=== PATIENT | male | born 1975 | race Caucasian/White ===

== ENCOUNTER → 2020-10-30 14:26 | Outpatient (CLI) | payer OTHER, SELFPAY ==
[2020-10-30 17:02] LABS: COVID19 -Nasal RAPID Negative (Negative)
== END ==
PROVIDERS: PCP Physician Assistant Medical; Visit Provider Physician Assistant
DX: Z11.59 Encounter for screening for other viral diseases (principal)
CPT/HCPCS: 87635

== ENCOUNTER 2020-11-02 06:15 | Day surgery (SDC) | payer OTHER, SELFPAY ==
[2020-10-26 08:35] VITALS: BMI 41.8
[2020-11-02] VITALS (14 sets, daily range): BP systolic 117–155; BP diastolic 63–101; PULSE 81–94; RESP 12–18; TEMP 36.1–37.3; O2SAT 94–99; BMI 41.8
--- NOTE | 2020-11-02 | DI.RAD.S_ITS ---
PROCEDURE: XR PELVIS 1-2V INDICATIONS: INNER OP TECHNIQUE: Intra-operative view of the pelvis and hip acquired. COMPARISON: [facility], CR, XR PELVIS WITH LATERAL HIP LEFT, 10/09/2020, 15:34. FINDINGS: Bones: Intraoperative devices prior to placement of arthroplasty prostheses are in expected positions. No fractures or suspicious bony lesions. Soft tissues: Overlying surgical retractors are present, along with other intraoperative changes. IMPRESSION: Intraoperative device in expected position. Dictated by: Sindy Bai M.D. on 11/02/2020 at 10:55 Approved by: Sindy Bai M.D. on 11/02/2020 at 10:56
--- NOTE | 2020-11-02 | DI.RAD.S_ITS ---
PROCEDURE: XR HIP W PEL IF DONE LT 2V INDICATIONS: TOTAL LEFT HIP TECHNIQUE: AP pelvis and lateral view of the left hip acquired. COMPARISON: [facility], CR, XR PELVIS WITH LATERAL HIP LEFT, 10/09/2020, 15:34. [facility], CR, XR PELVIS 1-2V, 11/02/2020, 9:29. FINDINGS: Bones: Patient is status post left hip arthroplasty, with hardware components in expected positions. The hip joint appears congruent. The visualized bony structures appear intact. Soft tissues: Overlying postoperative changes are noted. No suspicious soft tissue densities. IMPRESSION: Left hip arthroplasty with expected postsurgical appearance. Dictated by: Sindy Bai M.D. on 11/02/2020 at 19:23 Approved by: Sindy Bai M.D. on 11/02/2020 at 19:23
[2020-11-02] MEDS: CELECOXIB 200 MG CAPSULE PO (06:50)
[2020-11-02] MEDS: PREGABALIN 75 MG CAPSULE PO (06:50)
[2020-11-02] MEDS: ACETAMINOPHEN 325 MG TABLET 975 MG PO (06:50)
[2020-11-02] MEDS: VANCOMYCIN 1,000 MG/200 ML PIGGYBACK 200 MG IV (07:11)
[2020-11-02] MEDS: LACTATED RINGERS 1,000 ML 42 ML IV ×2 (07:11→08:45)
--- NOTE | 2020-11-02 07:30 | SUR.OPER ---
Lateral on padded OR bed. Gel axillary roll. Arms secured on padded armboard with pillow supporting top arm. Padded hip positioner braces x4 - anterior and posterior chest and pelvis. Additional gel pad used anterior pelvis. Gel pad under bottom leg from knee to foot and secured with tape over sheet.
--- NOTE | 2020-11-02 07:46 | PM.PREOP ---
Pre-operative Note COVID-19 COVID-19 status: Negative Interval Note History & Physical reviewed/Exam performed by Physician: Yes Changes to H&P: No
--- NOTE | 2020-11-02 07:47 | PM.OP.1 ---
Operative Date/Time/Diagnoses Date of procedure: 11/02/20 Time of procedure: 07:59 Pre-op diagnosis: left hip OA Post-op diagnosis: same Procedure & Clinicians Procedure: left hip OA Same procedure as scheduled: Yes Indications: The patient has had progressively worsening left hip pain with radiographic changes consistent with arthritis. Non-operative management has failed and the patient has requested total hip replacement. The risks, benefits and alternatives to surgery were discussed with the patient prior to proceeding. Risks discussed included, but were not limited to, failure to relieve pain, leg length discrepancy, dislocation, stiffness, infection, nerve damage, deep venous thrombosis, pulmonary embolism, stroke, coma, heart attack, permanent paralysis and , as well as the potential need for eventual revision of the prosthetic. Surgeon: Tonja Slade Family Practitioner: Reji Singh Anesthesia Type: General and Spinal Operative Notes Findings: Severe left hip osteoarthritis, adequate stability Closure Type: primary Specimen(s): none sent Prosthetic devices, grafts, tissues, transplants, or devices: Slade and nephew 52 mm R3 cup, size 6 anthology high offset, 36+ 4 Oxinium, one 15 mm screw Applied: drain(s) Estimated Blood Loss (mL): 250 Blood products transfused: none Procedure in detail: The patient was seen in the pre-operative area, where the patient identified the left hip as the operative site and this was marked with my initials. The patient received pre-operative antibiotics and was taken to the operating room and placed on the operative table in the right lateral decubitus position after satisfactory anesthesia. A assistant media planner out was performed. The left leg was prepared from the ankle to the iliac crest with ChloroPrep in the usual fashion and draped through sterile drapes. The hip was approached through an approximately 20 cm incision centered over the greater trochanter and curving gently posteriorly as it went proximally. This was carried sharply to the fascia sasha, which was divided and retracted with a self retaining retractor. The trochanteric bursa was excised with care being taken to avoid the sciatic nerve, which was identified and protected throughout the case. The short external rotators were incised and the capsulomuscular flap was raised and tagged for later repair. The hip was dislocated, and a femoral neck osteotomy performed approximately 15 mm above the lesser trochanter. Retractors were placed around the femur. The canal was opened with a box cutting osteotome, followed by a T handled reamer and a lateralizing reamer. The chili pepper broach was then used, followed by sequential broaching until there was good stability of the broach in the femur. Retractors were placed to expose the acetabulum. The labrum and central soft tissues were removed. Reaming was performed initially going up in 2 mm increments, then 1 mm increments until good bite was obtained with an odd sized reamer. The cup 1 mm larger than the last reamer was then inserted using the appropriate anteversion guides. It was further stabilized with a single screw. A trial neutral liner was placed. The broach was placed in the canal. A trial head and neck were then placed and the hip relocated and checked for leg length and stability. An intraoperative film confirmed the component position and no evidence of fracture. The patient was stable in the position of sleep, of squatting, and could be put through a range of motion with 45 degrees internal rotation without dislocation. At 90 degrees flexion, internal rotation to 70 was possible before dislocation. This was felt to be satisfactory and the appropriate components were opened, and the trials were removed. The acetabular liner was impacted into position. The final stem was then impacted into the prepared femoral canal. A brief Betadine soak was performed while trialing with head options. The hip was meticulously irrigated with normal saline. Finally the femoral head was impacted onto the stem. The acetabulum was cleared of all material and the hip relocated one final time. The capsulomuscular flap was then repaired to the greater trochanter though an awl hole using the tag sutures. The short external rotators were repaired with a nonabsorbable suture. A deep drain was placed and brought out anteriorly. The fascia sasha was closed with Vicryl. The subcutaneous layer was closed with barbed sutures and SteriStrips. An Aquacel Ag dressing was applied and the patient was taken to recovery having tolerated the procedure well. Complications: none Post-operative Condition: stable Disposition: Acute Care Plan for aftercare: The patient will be maintained on a standard total hip replacement protocol with weight bearing as tolerated and posterior hip precautions. The patient will receive Aspirin and sequential compression devices for DVT prophylaxis. The patient will be discharged home when safe for the home environment.
[2020-11-02] MEDS: CEFAZOLIN 2 GM/100 ML FROZ.PIGGY IV (08:01)
[2020-11-02] MEDS: BUPIVACAINE 0.25% (PF) VIAL 30 ML INJ (08:43)
[2020-11-02] MEDS: BUPIVACAINE LIPOSOME 266 MG/20 ML VIAL INJ (08:44)
[2020-11-02] MEDS: EPINEPHrine 1 MG/ML IRR (08:44)
[2020-11-02] MEDS: TRANEXAMIC ACID 1,000 MG VIAL 2000 MG INJ ×2 (08:46→10:29)
[2020-11-02] MEDS: IBUPROFEN 400 MG TABLET PO ×4 (12:31→23:54)
[2020-11-02] MEDS: OXYCODONE IR 5 MG TABLET PO (12:31)
[2020-11-02] MEDS: LACTATED RINGERS 1,000 ML 125 ML IV ×2 (12:34→18:52)
--- NOTE | 2020-11-02 13:30 | PC.ADMIT ---
1110 [facility] Admission Note: Pt arrived from PACU drowsy, but wakes to voice. On 2L via NC, home CPAP at bedside, set up for use. Oriented to call light and room. Pt reports pain 5/10, to L hip, but falling asleep during conversation. Will monitor for safety prior to administration. PO Oxycodone given per Emar. IVF running to PIV, SO at bedside, Scds in place and BA active. Alexander dressing is functioning properly and ice packs are in place. The patient,Cliff Goyal,45 y/o, was given written information regarding hospital policies, unit procedures and contact persons. Patient's smoking status: Former smoker. Vital Signs - 8 hr 11/02/20 06:51 11/02/20 10:51 11/02/20 10:55 Temperature 99.1 F 97.4 F L Pulse Rate 83 94 H 87 Respiratory Rate 17 12 15 Blood Pressure 146/101 H 155/87 H Pulse Oximetry 95 97 94 11/02/20 11:00 11/02/20 11:05 11/02/20 11:11 Temperature 97.7 F Pulse Rate 90 85 86 Respiratory Rate 12 15 14 Blood Pressure 142/91 H 147/92 H 133/88 Pulse Oximetry 94 96 99 11/02/20 11:15 11/02/20 11:21 11/02/20 11:35 Temperature 97.1 F L 97.0 F L Pulse Rate 83 84 81 Respiratory Rate 14 18 18 Blood Pressure 130/82 129/87 131/83 Pulse Oximetry 98 97 97 11/02/20 12:00 11/02/20 12:30 Temperature 97.3 F L 97.0 F L Pulse Rate 83 86 Respiratory Rate 18 18 Blood Pressure 135/78 128/75 Pulse Oximetry 95 97
[2020-11-02] MEDS: ACETAMINOPHEN 325 MG TABLET 650 MG PO ×2 (15:38→21:02)
--- NOTE | 2020-11-02 16:41 | PT.IIE ---
Current Diagnoses Unilateral primary osteoarthritis, left hip (11/02/20) Surgery Performed Operation Date: 11/02/20 07:45 Actual Procedures p Total Hip Arthroplasty(Left) - Tonja Slade MD Surgical History (Last Updated 10/26/20 @ 09:08 by Lurdes Reyes RN) History of surgery (~2001) Hx of lumbosacral spine surgery (01/31/17) Hx of splenectomy (~2014) Hx of tonsillectomy Medical History (Last Updated 10/26/20 @ 09:11 by Lurdes Reyes RN) Osteoarthritis RLS (restless legs syndrome) Seasonal allergies Sleep apnea Physical Therapy Inpatient Evaluation/Re-Eval M1 PT/OT-IP Prior Functional Status Start: 11/02/20 12:49 Freq: NEEDED Status: Active Protocol: Document 11/02/20 15:42 DE (Rec: 11/02/20 16:10 DE [id number]) Medical Review Prior Functional Status Medical History Reviewed Yes Communication WNL. No deficits noted. Able to make needs known. Mobility and Gait IND for all mobility and amb without AD at baseline. No limitations to amb distance. Pt has difficulty performing stairs and needs to lean on the wall at home. Activities of Daily Living and IADL's IND for all ADLs and IADLs at baseline. Pt has difficulty donning/doffing L sock but is able to do it. Prior Functional Level (Other details) Hx of back surgery 3 years ago . Social History Household Members significant other,children Living Arrangements House Number of Floors (Floors) One Floor Number of Stairs To Enter/Railing? 3 [place] with no railing but there is a wall on the R side he can lean on. There is a corner he can grab onto on the R side that he can reach after the first step. Home Environment High Toilet,Walk in Shower, Built-In Shower Seat Home Equipment Front Wheel Walker,Straight Cane,Hand Held Shower,Long Handled Shoe Horn,Bed Rails, Grab Bars Near Toilet Employment Status Self-Employed Additional Social History Comment Pt lives with significant other, Magda, and a son. Magda will be available full-time to assist if needed. Son can help too. 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 M2 PT-IP Current Condition Start: 11/02/20 12:49 Freq: NEEDED Status: Active Protocol: Document 11/02/20 15:42 DE (Rec: 11/02/20 16:10 DE [id number]) Physical Therapy Current Condition Current Condition Evaluation Date 11/02/20 Treatment Diagnosis L JOHN; Difficulty in walking Onset Date 11/02/20 Precautions Posterior Hip Precautions No Hip Flexion > 90 degrees,No Hip Internal Rotation,No Hip Adduction Weight Bearing Status Weight Bearing Status Weight Bear as Tolerated M3 PT-IP Subjective Start: 11/02/20 12:49 Freq: NEEDED Status: Active Protocol: Document 11/02/20 15:42 DE (Rec: 11/02/20 16:10 DE [id number]) Subjective Physical Therapy Visit Type Type Initial Evaluation Visit Start Time 14:20 Visit Stop Time 15:02 Total Visit Minutes 42 Notes SPT Hipolito led session under direct supervision of PT Carmen. 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 Therapy Pain Assessment Pain When Pain Assessed At Rest Pain Present Pain Present Pain Reported Location right knee Intensity 4 Scale Used Numeric (0 - 10) Description Aching Pain Behaviors Calling Out Pain Management Techniques Timing of Activity with Medications M4 PT-IP Mobility and Gait Start: 11/02/20 12:49 Freq: NEEDED Status: Active Protocol: Document 11/02/20 15:42 DE (Rec: 11/02/20 16:10 DE [id number]) PT-Bed Mobility Assessment Supine to Sit Supine to Sit Contact Guard Assistance,Head of Bed Elevated PT-Transfer Assessment Sit to and From Stand Sit to and from Stand Contact Guard Assistance,Use of Upper Extremities Equipment Transfer Assistive Device Gait Belt,Front Wheeled Walker Orthotic/Prosthetic Devices or Brace: No Transfers Transfer Destination Chair Transfer Technique Amb with FWW Transfer Ability Level of Assist Contact Guard Assistance Comments Mobility Comments Pt was lying supine upon arrival. Pt completed supine to sit at R EOB with elevated HOB and CGA. Pt performed sit to stand with FWW, CGA, and cues to not bend over at the hips. Pt denied any lightheadedness or dizziness. Pt amb ~25 ft in the room and sat down in the chair with FWW CGA. Pt demonstrated step-to gait pattern with decreased feet clearance and decreased stride length. Pt was able to tolerate WB on LLE well. Pt reported pain is about the same compared to at rest. Pt picked up the FWW every step and cues were provided to roll the FWW instead. Pt was reclined comfortably in the chair. Call light placed within reach. Gait Assessment Gait Gait Assistance Required: Contact Guard Assist Distance (Feet) 25 Able to Maintain Weight Bearing Status Yes During Gait Assistive Devices Assistive Device Gait Belt,Front Wheeled Walker Orthotic/Prosthetic Devices or Brace: No Gait Deviations General Gait Pattern Antalgic,Decreased Stride Length,Decreased Feet Clearance Factors Limiting Gait Function Factors Limiting Gait Function Decreased Activity Tolerance, Decreased Sensation,Decreased Strength,Limited Range of Motion,Pain,Poor Balance Comments Gait Comments See mobility comments. Stair Climbing Assessment Comments Stair Climbing Comments Not assessed. PT-Balance Assessment Sitting Balance and Reactions Static Sitting Balance Ability Normal Dynamic Sitting Balance Ability Normal Standing Balance and Reactions Static Standing Balance Ability Good Dynamic Standing Balance Ability Good M5 PT-IP Objective Assessments Start: 11/02/20 12:49 Freq: NEEDED Status: Active Protocol: Document 11/02/20 15:42 DE (Rec: 11/02/20 16:10 DE [id number]) Orientation Orientation/Cognition Level of Alertness Alert Orientation Name,Age,Birthday,Month,Date, Year,Day of Week,Place, Situation Language Function Ability No Deficits Noted Safety Awareness Understands Safety Issues Memory Description No Deficits Noted Gross Range of Motion Lower Extremity ROM Assessment Left Impaired Strength Lower Extremity Strength Assessment Left Impaired Coordination Assessment Gross Coordination Gross Coordination WNL Sensation Assessment Sensation Gross Sensation Right LE Impaired,Left LE Impaired Light Touch Impaired Comments Sensation Comments Pt reports decreased sensation on the LLE compared to the RLE. Muscle Tone Muscle Tone WNL Yes M6 PT-IP Treatment Start: 11/02/20 12:49 Freq: NEEDED Status: Active Protocol: Document 11/02/20 15:42 DE (Rec: 11/02/20 16:10 DE [id number]) Physical Therapy Treatment Exercises Exercises Ankle Pumps,Quad Sets Education Education Provided Precautions,Weight Bearing Status,Post-Op Packet,Safety Other Treatments Other Treatment Performed Provided education on exercises, precautions, WB status, safety, and role of PT . M7 PT-IP Assessment and Plan Start: 11/02/20 12:49 Freq: NEEDED Status: Active Protocol: Document 11/02/20 15:42 DE (Rec: 11/02/20 16:10 DE [id number]) PT Summary Assessment and Plan Potential Rehabilitation Potential Good Status of Condition at Evaluation Evolving Summary Impairments Pain,ROM,Strength,Balance, Sensation,Bed Mobility, Transfers,Gait,Activity Tolerance Assessment Summary Cliff is a 45 yo male POD0 s/p L JOHN with hx of back surgery 3 years ago. At baseline, pt is IND for all mobility and amb at baseline without AD. Pt has difficulty performing stairs and needs to lean on the wall at home. On evaluation, pt required CGA for supine to sit, sit <> stand, and amb with use of FWW . Pt amb ~25 ft in the room with FWW CGA. Pt is not safe yet to go home at this time. Pt will need to improve activity tolerance and perform 3 steps up and down with no railing before d/c home. PT anticipates pt will be safe to d/c home with assistance once medically cleared. Pt will benefit from outpatient PT to improve hip ROM and strength. Goals Bed Mobility Goal Standby Assistance Transfer Goal Standby Assistance,Front Wheeled Walker Gait Goal Standby Assistance,Front Wheel Walker Gait Distance 200 Other Goals Pt will perform 3 steps without railing with SBA. Days to Meet Goals 3 Frequency of Treatment Frequency Of Treatment Twice a Day Treatment Plan Physical Therapy Treatment Plan Bed Mobility Training,Transfer Training,Gait Training, Therapeutic Exercise,Balance Retraining,Post Op Education, Discharge Planning,Hot or Cold Pack Other Recommendations and Next Treatment Stairs Focus Recommendations To Nursing Amount of Assist Needed 1 Person Assist Discharge Recommendations PT Discharge Recommendations Home with Assistance, Outpatient PT Transportation Needs at Discharge Private Vehicle Treatment was provided by Hipolito Brian, SPT and supervised by Carmen Bernal, PT. I personally reviewed this note and agree with its contents.
[2020-11-02] MEDS: CEFAZOLIN VIAL 3 GM in SODIUM CHLORIDE 0.9% 100 ML 200 ML IV (18:07)
[2020-11-02] MEDS: DOCUSATE 100 MG CAPSULE PO (21:01)
[2020-11-02] MEDS: ASPIRIN EC 81 MG TABLET PO (21:01)
--- NOTE | 2020-11-02 22:08 | PC.NURSE ---
Pt status post L total Hip. Has been up to the chair at the bedside for most of shift, ice pack to L hip, RADHA dressing to hip dry and intact, hemovac with minimal amt of serosang drainage. Pain has been 2-3/10 and easily relieved with tylenol and ibuprophen. IV of LR @ 125/hr infusing as ordered. Ambulates with 1 person standby assist. Using cpap appropriately when sleeping.
[2020-11-03 00:20] VITALS: BP 133/72; PULSE 100; RESP 16; TEMP 37.1; O2SAT 96
[2020-11-03] MEDS: OXYCODONE IR 5 MG TABLET PO ×3 (02:01→11:12)
[2020-11-03] MEDS: CEFAZOLIN VIAL 3 GM in SODIUM CHLORIDE 0.9% 100 ML 200 ML IV (02:01)
[2020-11-03 04:44] VITALS: BP 121/61; PULSE 85; RESP 16; TEMP 36.7; O2SAT 95
[2020-11-03 05:42] LABS: Hematocrit 35.8 % (41-53); Hemoglobin 12.1 g/dL (13.5-17.5)
[2020-11-03] MEDS: IBUPROFEN 400 MG TABLET PO (05:44)
--- NOTE | 2020-11-03 07:55 | P.DS_ITS ---
History of Present Illness History of Present Illness Date Patient Seen: 11/03/20 Time Patient Seen: 07:55 Chief complaint: Left Total Hip Arthroplasty *OPB* Narrative: Pain is mild. Denies fever or chills. No nausea or vomiting. Patient's is home to assist him. Patient has been up ambulating in room. Discharge Providers Provider Discharge Date: 11/03/20 Primary care physician: Nhung Barker PA-C Consults: 11/02/20 06:00 Consult to Anesthesiology Routine Comment: Consulting Provider: Anesthesiologist Reason for consultation: Regional block for post operative pain control 11/02/20 07:04 Consult to Respiratory Therapy Evaluate & Treat Comment: Physician Instructions: Evaluate and treat 11/02/20 11:35 Consult to Discharge Planning Routine Comment: Consult to Physical Therapy Evaluate & Treat Comment: Physician Instructions: post op JOHN protocol Consult to Respiratory Therapy Evaluate & Treat Comment: Physician Instructions: Evaluate and treat Discharge provider: Reji Singh PA-C Summary Hospital Course Discharge Diagnosis: left hip OA Hospital Course: left hip OA Same procedure as scheduled: Yes Indications: The patient has had progressively worsening left hip pain with radiographic changes consistent with arthritis. Non-operative management has failed and the patient has requested total hip replacement. The risks, benefits and alternatives to surgery were discussed with the patient prior to proceeding. Risks discussed included, but were not limited to, failure to relieve pain, leg length discrepancy, dislocation, stiffness, infection, nerve damage, deep venous thrombosis, pulmonary embolism, stroke, coma, heart attack, permanent paralysis and , as well as the potential need for eventual revision of the prosthet ic. Surgeon: Tonja Slade Textile Machinery Sales Representative: Reji Singh Anesthesia Type: General and Spinal Operative Notes Findings: Severe left hip osteoarthritis, adequate stability Closure Type: primary Specimen(s): none sent Prosthetic devices, grafts, tissues, transplants, or devices: Slade and nephew 52 mm R3 cup, size 6 anthology high offset, 36+ 4 Oxinium, one 15 mm screw Applied: drain(s) Estimated Blood Loss (mL): 250 Blood products transfused: none Status at Discharge Cognitive/behavioral status at discharge: at baseline, oriented Functional status at discharge: uses cane/walker Overall status at discharge: patient is progressing back to baseline Time Spent with Patient Time spent: Less than 30 minutes Exam Vital Signs (past 8 hours): - 11/03/20 00:20 11/03/20 04:44 Temperature 98.7 F 98.1 F Pulse Rate 100 H 85 Respiratory Rate 16 16 Blood Pressure 133/72 121/61 Pulse Oximetry 96 95 Oxygen Delivery Method Room Air Oxygen Flow Rate 0 Narrative Exam Narrative: 45-year-old male resting comfortably in bed in no apparent distress. Left hip dressing is clean, dry and intact. Radha dressing is on and functioning. Motor function is intact distal left lower extremity. Sensation grossly intact to light touch distal left lower extremity. Both legs are warm and dry. Objective Labs Result Diagrams: 11/03/20 04:30 Labs: Laboratory Results - last 24 hr 11/03/20 04:30 Hgb 12.1 L Hct 35.8 L PFSH Medical History Osteoarthritis RLS (restless legs syndrome) Seasonal allergies Sleep apnea Surgical History History of surgery (~2001) Hx of lumbosacral spine surgery (01/31/17) Hx of splenectomy (~2014) Hx of tonsillectomy Social History household members: significant other and children Smoking Status: Former smoker alcohol intake: former Discharge Assessment & Plan Assessment and Plan Assessment: Postop day 1 status post left total hip arthroplasty. Patient progressing as expected. Plan of Treatment: Discharge home after physical therapy. Discharge Plan Discharge Plan Patient Disposition: Home Discharge orders & Medications Discharge Orders: Discharge (Order); Ordered 11/03/20 Ordered By: Reji Singh Prescriptions: New acetaminophen 325 mg Tablet 650 mg PO TID Qty: 60 RF: 0 aspirin 81 mg Tablet,Delayed Release (Dr/Ec) 81 mg PO BID Qty: 60 RF: 0 ibuprofen 400 mg Tablet 400 mg PO Q4HR Qty: 60 RF: 0 oxycodone 5 mg Tablet 5 mg PO Q3HR PRN (Reason: Pain, Moderate (4-6)) Qty: 60 RF: 0 Continued cetirizine 10 mg tablet 10 mg PO Q DAY Qty: 0 RF: 0 triamcinolone acetonide [Nasacort] 55 mcg Aerosol,[place] 2 spray INTRANASAL DAILY RF: 0 albuterol sulfate [Ventolin HFA] 90 MCG/PUFF HFA aerosol inhaler 0 inh INH Q4H PRN (Reason: Shortness Of Breath) RF: 0 Discontinued aspirin 81 MG tablet,chewable 81 mg PO QDAY Qty: 0 RF: 0 ibuprofen 200 mg Tablet 800 mg PO DAILY RF: 0 Follow up/Referrals: Tonja Slade MD [Physician] - (1 week for RADHA dressing check) Nhung Barker PA-C [Primary Care Provider] - Diet/Activity/Treatments Diet: Diet as Tolerated Activity: Walk multiple times a day. Avoid high hip flexion. Posterior hip precautions Cold/Heat Therapy: Use ice multiple times a day. Other treatments: Use baby aspirin to avoid a blood clot. Skin/Wound/Dressing Care Report to your healthcare provider any signs of infection, such as:: chills, fever, night sweats, increased pain, unusual drainage and unusual redness Dressing: Leave dressing on. Okay to shower Visit Report/Discharge Packet Instructions: DI for Hip Replacement Stand Alone Forms: Surgery Discharge Discharge Data Primary Care Provider: Nhung Barker Attending Provider: Tonja Slade
[2020-11-03] MEDS: ASPIRIN EC 81 MG TABLET PO (08:47)
[2020-11-03] MEDS: ACETAMINOPHEN 325 MG TABLET 650 MG PO (08:47)
[2020-11-03] MEDS: DOCUSATE 100 MG CAPSULE PO (08:47)
[2020-11-03] MEDS: LORATADINE 10 MG TABLET PO (08:49)
--- NOTE | 2020-11-03 09:21 | PT.IPTN ---
Current Diagnoses Unilateral primary osteoarthritis, left hip (11/02/20) Surgery Performed Operation Date: 11/02/20 07:45 Actual Procedures p Total Hip Arthroplasty(Left) - Tonja Slade MD Physical Therapy Treatment Note M2 PT-IP Current Condition Start: 11/02/20 12:49 Freq: NEEDED Status: Active Protocol: Document 11/02/20 15:42 DE (Rec: 11/02/20 16:10 DE [id number]) Physical Therapy Current Condition Current Condition Evaluation Date 11/02/20 Treatment Diagnosis L JOHN; Difficulty in walking Onset Date 11/02/20 Precautions Posterior Hip Precautions No Hip Flexion > 90 degrees,No Hip Internal Rotation,No Hip Adduction Weight Bearing Status Weight Bearing Status Weight Bear as Tolerated M3 PT-IP Subjective Start: 11/02/20 12:49 Freq: NEEDED Status: Active Protocol: Document 11/03/20 08:55 KS (Rec: 11/03/20 10:56 KS [id number]) Subjective Physical Therapy Visit Type Type Treatment Note Visit Start Time 08:55 Visit Stop Time 09:21 Total Visit Minutes 26 Number of ROLL FILLER Visits 1 Physical Therapy Visit Comments Patient Comments Pt is agreeable to do PT. Pts present throughout treatment. M4 PT-IP Mobility and Gait Start: 11/02/20 12:49 Freq: NEEDED Status: Active Protocol: Document 11/03/20 08:55 KS (Rec: 11/03/20 10:56 KS [id number]) PT-Bed Mobility Assessment Supine to Sit Supine to Sit Standby Assistance,1 Person Assistance,Bedrails Scooting Scooting to Edge of Bed Standby Assistance PT-Transfer Assessment Sit to and From Stand Sit to and from Stand Standby Assistance,1 Person Assistance,Use of Upper Extremities Equipment Transfer Assistive Device Gait Belt,Front Wheeled Walker Orthotic/Prosthetic Devices or Brace: No Transfers Transfer Destination Chair,Wheelchair Transfer Technique Amb with FWW Transfer Ability Level of Assist Contact Guard Assistance Comments Mobility Comments Pt in bed upon arrival from therapy w/ in room. Pt SBA w/ use of gait belt for self assist of LLE and bed rails for sup<>Sit from flat bed and SBA for scooting to EOB. Pt sit<>Stand w/ FWW SBA w/ cues and then ambulated ~15 ft to w/c in hallway w/ FWW SBA. Pt transported to stairs in w/c for energry conservation. He then ascended /descended 3 steps w/ R wall and hand hold assist provided by w/ step to pattern. Patient needed min cues for leg sequencing. Pt and state they feels safe to perform steps at home. He then ambulated ~75 additional ft w / FWW SBA. Pt demonstrated proper use of FWW and step through gait pattern. W/c transfer for remainder of distance to room. Pt sit<> Stand and ambulated to and transferred to chair SBA. Patient and state they feel safe to return home. He will benefit from outpatient rehab which he has scheduled to begin next . Gait Assessment Gait Gait Assistance Required: Contact Guard Assist Distance (Feet) 90 Able to Maintain Weight Bearing Status Yes During Gait Assistive Devices Assistive Device Gait Belt,Front Wheeled Walker Orthotic/Prosthetic Devices or Brace: No Gait Deviations General Gait Pattern Antalgic,Decreased Stride Length,Decreased Feet Clearance Factors Limiting Gait Function Factors Limiting Gait Function Decreased Activity Tolerance, Decreased Sensation,Decreased Strength,Limited Range of Motion,Pain,Poor Balance Comments Gait Comments See mobility comments. Stair Climbing Assessment Evaluation Level of Assist On Stairs Contact Guard Assistance,1 Person Assistance Devices Stair Climbing Assistive Devices Right Railing Technique/Endurance Stair Climbing Direction Ascend and Descend Stair Climbing Technique Step to Step Number of Steps Climbed 3 Stair Climbing Set # Repetitions (reps) 1 Comments Stair Climbing Comments Patient ascended/descended 3 steps w/ R wall, step to pattern and hand held assist provided by pts . He required min cues for leg sequencing. Patient and state they feel safe to complete steps at home. PT-Balance Assessment Sitting Balance and Reactions Static Sitting Balance Ability Normal Dynamic Sitting Balance Ability Normal Standing Balance and Reactions Static Standing Balance Ability Good Dynamic Standing Balance Ability Good M5 PT-IP Objective Assessments Start: 11/02/20 12:49 Freq: NEEDED Status: Active Protocol: Document 11/02/20 15:42 DE (Rec: 11/02/20 16:10 DE [id number]) Orientation Orientation/Cognition Level of Alertness Alert Orientation Name,Age,Birthday,Month,Date, Year,Day of Week,Place, Situation Language Function Ability No Deficits Noted Safety Awareness Understands Safety Issues Memory Description No Deficits Noted Gross Range of Motion Lower Extremity ROM Assessment Left Impaired Strength Lower Extremity Strength Assessment Left Impaired Coordination Assessment Gross Coordination Gross Coordination WNL Sensation Assessment Sensation Gross Sensation Right LE Impaired,Left LE Impaired Light Touch Impaired Comments Sensation Comments Pt reports decreased sensation on the LLE compared to the RLE. Muscle Tone Muscle Tone WNL Yes M6 PT-IP Treatment Start: 11/02/20 12:49 Freq: NEEDED Status: Active Protocol: Document 11/03/20 08:55 KS (Rec: 11/03/20 10:56 KS [id number]) Physical Therapy Treatment Education Education Provided Precautions,Weight Bearing Status,Post-Op Packet,Safety Other Treatments Other Treatment Performed Completed caregiver training w / pts who was able to provided necessary assist and cues and don gait belt. M7 PT-IP Assessment and Plan Start: 11/02/20 12:49 Freq: NEEDED Status: Active Protocol: Document 11/03/20 08:55 KS (Rec: 11/03/20 10:56 KS [id number]) PT Summary Assessment and Plan Potential Rehabilitation Potential Good Status of Condition at Evaluation Evolving Summary Impairments Pain,ROM,Strength,Balance, Sensation,Bed Mobility, Transfers,Gait,Activity Tolerance Assessment Summary Patient showed increase mobility and tolerance for activity today. SBA for sup<> sit w/ bed rails and gait belt for LLE assistance, SBA for scooting and sit<>Stand w/ FWW w/ cues for sequencing. Patient tolerated ~90 ft ambulated and 3 total steps w/ R wall and hand hold assist. Pt had improved gait w/ step through pattern and proper use of FWW. Pts was able to provide appropriate hand hold assist on stairs. Patient and state they feel safe to return home and pt has outpatient PT scheduled to begin next week. Goals Bed Mobility Goal Standby Assistance Transfer Goal Standby Assistance,Front Wheeled Walker Gait Goal Standby Assistance,Front Wheel Walker Gait Distance 200 Other Goals Pt will perform 3 steps without railing with SBA. Days to Meet Goals 3 Frequency of Treatment Frequency Of Treatment Twice a Day Treatment Plan Physical Therapy Treatment Plan Bed Mobility Training,Transfer Training,Gait Training, Therapeutic Exercise,Balance Retraining,Post Op Education, Discharge Planning,Hot or Cold Pack Recommendations To Nursing Amount of Assist Needed 1 Person Assist Discharge Recommendations PT Discharge Recommendations Home with Assistance, Outpatient PT Transportation Needs at Discharge Private Vehicle
--- NOTE | 2020-11-03 11:09 | PC.NURSE ---
AM shift Pt is doing well with pain control this am Reji Singh into see Pt and d/c home. Removed hemovac, RADHA in place and working. Instructed patient about home care and follow up appt. Pt and spouse had all questions answered. IV removed, medicated on way out. Private vehicle.
--- NOTE | 2020-11-03 11:28 | CM.DANOTE ---
Discharge Planning/Care Management DCP: assessment: case received, ERM reviewed, d/c order noted. Went to room to check in on pt and found she had already left for home in company of girlfriend Kizzy. Pt is a 45 year old male who admitted yesterday for a scheduled L JOHN. Surgeon: Dr. Kathleen Slade Payer: Alice COSBY Pt did one more session this morning with PT, was cleared for d/c to home setting and no d/c concerns were noted by the care team members. Outpt PT had already been scheduled. CM Discharge Assessment Start: 11/03/20 11:27 Freq: Status: Active Protocol: Document 11/03/20 11:27 ITV (Rec: 11/03/20 11:28 ITV [id number]) Discharge Planning Assessment Advance Directives? No Advance Directives on File No History Provided By Medical Record Prior Living Arrangements House Household Members significant other,children Is patient alert and oriented? Yes Pre-Anesthesia Assessment Start: 10/26/20 08:35 Freq: Status: Discharge Protocol: Document 10/26/20 08:35 CAB (Rec: 10/26/20 09:27 CAB [id number]) Pre-Anesthesia Assessment Preferred Name Abdiel Patient Information Reviewed Via Phone Assessment Assessment Completed With Patient Comment Needs to do labs/EKG, COVID screen @ 10/30/20 Primary Care Provider Nhung Barker Seen Specialist in Last 12 Months Yes Specialist Seen Orthopedist Primary Language British Lab Support Technician Required No Height 172.72 cm Weight 124.738 kg Body Mass Index (BMI) 41.8 Hearing Ability Normal,Hard of Hearing Visual Assist Glasses Dentition Type Teeth, Natural Present Barriers to Learning None Hx Anesthesia Reactions No Hx Family Anesthesia Reaction No Hx Malignant Hyperthermia No Hx Blood Transfusions Yes: r/t splenectomy Hx Blood Transfusion Reaction No Anesthesia Review Requested No Instrument Tester No alcohol intake former Alcohol Intake Frequency Other: Quit 19 years ago Smoking Status Former smoker how long ago did patient quit smoking Quit 20 years ago Substance Use Type does not use Pain Present Pain Reported Musculoskeletal Symptoms Abnormal Gait,Back Pain, Difficulty Walking,Joint Pain History of Falling (Recent or History of No ) Patient is completely paralyzed or No completely immobile Mental Status Oriented to own ability Is patient on oxygen? No Does patient have SMITH/SOB No Hx Sleep Apnea Yes CPAP/BIPAP use prescribed and used routinely Will Bring CPAP/BIPAP DOS Yes Currently Taking a Beta Faraz No Can You Climb a Flight of Stairs Without Yes SOB Hx Chest Pain No Hx SOB No Hx Syncope or Dizziness No Anti-Coagulant Therapy Yes: ASA r/t splenectomy-will check w/PCP on whether to hold prior Has a Briquette Molder No Cardiac Testing No Hx Pacemaker/ICD No Pacemaker Rep Required? No Diet Type At Home Regular dysphagia No Bladder Pattern Urgency Urinary Catheter Present No Hx Urinary Self Catheterization No Diabetes No Hx Drug Resistant Organism No Presence of External or Internal Medical Yes: CPAP Devices Have you had any close contact with No someone diagnosed with COVID-19? Marital Status Lives With children Prior Living Arrangements House Number of Floors (Floors) One Floor Support System Child/Children,Significant Other Does the Patient Have Assistance After Yes Surgery Patient Discharge Plan Description Return Home Comment Pt advised overnight length of stay per surgeon Feels Safe in Current Environment Yes Been Physically Hurt or Threatened By a No Person in Current Environment Do you have thoughts of harming yourself None or others? Are you currently considering suicide? No Do you have a plan to hurt yourself or No Plan others? Do You Have Any Spiritual Beliefs That No May Affect Your HC Choices? Do You Have Any Cultural Practices That No May Affect Your HC Choices? Comment Atheist Who Can We Speak to About Patient's Care Family, friends Identifying Code for Release of Patient Declines to issue Information Health Care Proxy/Next of Kin Jonathan (dad) Health Care Proxy Emergency Contact Name Kizzy (Girlfriend) Emergency Contact Advance Directives? No Power of Maintenance And Engineering Manager No PAC Instructions Bring CPAP/BIPAP,Durable medical equipment,Medications to take/avoid,Nasal antibiotic ,No ETOH/petroleum product on skin DOS,NPO,Pre-surgical wash ,Sturdy shoes/comfortable clothes,Do not bring valuables and remove jewelry
== END 2020-11-03 11:19 | disposition home or self-care (01) ==
LOC: OR 06:18 → AC 06:29
PROVIDERS: PCP Physician Assistant Medical; Referring Provider Physician Assistant Medical; Visit Provider Orthopaedic Surgery
PROC: 0SRB0JZ Replacement of Left Hip Joint with Synthetic Substitute, Open Approach (ICD-10-PCS; CPT 27130; principal; 2020-11-02 07:45)
DX: M16.12 Unilateral primary osteoarthritis, left hip (principal); G47.33 Obstructive sleep apnea (adult) (pediatric); E66.9 Obesity, unspecified
CPT/HCPCS: 27130; 36415; 72170; 73502; 85014; 85018; 97116; 97161; 97530; C1776; A9270; C9290; J0171; J0690; J1100; J1170; J2250; J2274; J2405; J2704; J3010

== ENCOUNTER → 2021-06-18 19:24 | Outpatient (CLI) | payer OTHER, SELFPAY ==
[2020-11-02 06:34] VITALS: BMI 41.8
[2021-06-18 19:48] LABS: COVID19 -Nasal RAPID POSITIVE (Negative)
== END ==
PROVIDERS: PCP Physician Assistant Medical; Referring Provider Physician Assistant; Visit Provider Physician Assistant
DX: U07.1 COVID-19 (principal)
CPT/HCPCS: 87635